=== PATIENT | female | born 1960 | race Hispanic/Latino ===

== ENCOUNTER 2025-01-02 17:23 | Emergency (ER) | payer MEDICARE, BC ==
[~2025-01-02] VITALS: Ht 157.5 cm; Wt 67.6 kg
[~2025-01-02 17:23] MED LIST: LEVOTHYROXINE88 MCG; LOSARTAN
[2025-01-02 17:32] VITALS: PULSE 97; RESP 18; TEMP 97.1
[2025-01-02] MEDS: KETOROLAC TROMETHAMINE 60 MG/2 ML VIAL IM ONE (18:09)
[2025-01-02] MEDS: ACETAMINOPHEN 325 MG TAB PO ONE (18:09)
[2025-01-02] MEDS ORDERED: KETOROLAC TROME10 MG PO (18:26)
[2025-01-02 18:34] VITALS: BP 136/71; PULSE 91; RESP 16; TEMP 99; O2SAT 97
== END 2025-01-02 18:34 | disposition home or self-care (01) ==
LOC: FSED 17:26
DX: R05.9 Cough, unspecified (principal); B34.9 Viral infection, unspecified; R09.89 Other specified symptoms and signs involving the circulatory and respiratory systems; R51.9 Headache, unspecified; I10 Essential (primary) hypertension; E03.9 Hypothyroidism, unspecified; L40.9 Psoriasis, unspecified
CPT/HCPCS: 0223U; 83518; 87400; 99284; J1885